=== PATIENT | male | born 1960 | race Caucasian/White ===

== ENCOUNTER 2016-09-22 23:55 | Emergency (ER) | payer OTHER ==
[2016-09-23] MEDS ORDERED: KETOROLAC TROMETHAMINE 30 MG/ML SOL IV ONE (00:54)
[2016-09-23] MEDS ORDERED: METOCLOPRAMIDE HYDROCHLORIDE 5 MG/ML SOL IV ONE (00:55)
[2016-09-23 01:09] LABS: BASOPHILS % (AUTO) 1 % (0-3); EOSINOPHILS % (AUTO) 2 % (0-9); HEMATOCRIT 47 % (39-53); MEAN CORPUSCULAR HGB CONC 34.1 gm/dl (32.0-36.0); MEAN CORPUSCULAR VOLUME 88 fL (80-100); MONOCYTES % (AUTO) 12.1 % (0-12); NEUTROPHILS % (AUTO) 47.2 % (37-80)
[2016-09-23 01:23] LABS: ALBUMIN 3.7 gm/dl (3.4-5.0); CALCIUM 9.1 mg/dl (8.5-10.1)
[2016-09-23] MEDS ORDERED: METOCLOPRAMIDE HYDROCHLORIDE 5 MG/ML SOL ONE (01:32)
[2016-09-23] MEDS ORDERED: KETOROLAC TROMETHAMINE 30 MG/ML SOL ONE (01:32)
[2016-09-23 02:15] VITALS: RESP 20
[2016-09-23 02:16] VITALS: TEMP 98.9
[2016-09-23 02:17] VITALS: BP 109/72; PULSE 68; O2SAT 97
== END 2016-09-23 02:40 | disposition home or self-care (01) ==
LOC: ED 23:55
DX: G43.909 Migraine, unspecified, not intractable, without status migrainosus (principal)
CPT/HCPCS: 99285 ×3; 70496; 80053; 85025; 86140; J1885; J2765; Q9967; 36415; 70450